=== PATIENT | female | born 1985 | race Caucasian/White ===

== ENCOUNTER 2020-08-01 09:45 | Emergency (ER) | payer OTHER ==
[~2020-08-01] VITALS: Ht 152.4 cm; Wt 75.8 kg
[2020-08-01 09:46] VITALS: BP 112/74
[2020-08-01] MEDS ORDERED: LOVE1INJ SC (09:57)
[2020-08-01] MEDS ORDERED: METH5TA PO (09:57)
== END 2020-08-01 10:15 | disposition home or self-care (01) ==
LOC: M ED 09:45
DX: Z48.02 Encounter for removal of sutures (principal); Z88.1 Allergy status to other antibiotic agents; F11.20 Opioid dependence, uncomplicated; Z79.899 Other long term (current) drug therapy

== ENCOUNTER → 2021-01-11 | Outpatient (REF) | payer MEDICAID ==
[~2021-01-11] MED LIST: LOVE1INJ SC; METH5TA PO
[2021-01-11 14:52] LABS: BLOOD UREA NITROGEN 8 MG/DL (7-18); CALCIUM LEVEL 8.8 MG/DL (8.5-10.1); CARBON DIOXIDE LEVEL 30 MEQ/L (21-32); CHLORIDE LEVEL 105 MEQ/L (98-107); CREATININE FOR GFR 0.74 MG/DL (0.55-1.30); FREE T4 0.68 NG/DL (0.76-1.46); GLOMERULAR FILTRATION RATE > 60.0 (>60); GLUCOSE, FASTING 118 MG/DL (70-100); POTASSIUM SERUM 4.3 MEQ/L (3.5-5.1); SODIUM LEVEL 138 MEQ/L (136-145)
== END ==
LOC: M SFHCPLAZ 09:49
PROVIDERS: ATTEND Family Medicine
DX: E03.9 Hypothyroidism, unspecified (principal); R60.9 Edema, unspecified

== ENCOUNTER 2021-02-11 11:34 | Emergency (ER) | payer MEDICAID, OTHER ==
[~2021-02-11] VITALS: Ht 152.4 cm; Wt 77.3 kg
[2021-02-11] MEDS ORDERED: XANA1TAB2 PO (11:42)
[2021-02-11] MEDS ORDERED: methocarbamoL 750 MG TAB PO ONE (12:25)
[2021-02-11] MEDS ORDERED: KETOROLAC 60MG 2ML VIAL IM ONE (12:25)
[2021-02-11 12:49] LABS: HEMATOCRIT 44.3 % (36.0-47.0); MEAN CORPUSCULAR HEMOGLOBIN 28.2 pg (27.0-33.0); MEAN CORPUSCULAR HGB CONC 31.6 g/dl (32.0-36.5); MEAN CORPUSCULAR VOLUME 89.1 fl (80.0-96.0); PLATELET COUNT, AUTOMATED 228 10^3/uL (150-450); RED BLOOD COUNT 4.97 10^6/uL (4.00-5.40); WHITE BLOOD COUNT 7.7 10^3/uL (4.0-10.0)
--- NOTE | 2021-02-11 13:05 | REP ---
INDICATION: left pleuritic upper back pain; r/o pneumonia COMPARISON: None. TECHNIQUE: PA and lateral. FINDINGS: The mediastinum and cardiac silhouette are normal. Vague increased perihilar and primarily left infrahilar markings are nonspecific although viral pneumonia cannot be excluded. No discrete focal consolidation, effusion, or pneumothorax. Skeletal structures intact. IMPRESSION: Subtle increased markings are nonspecific and raise the possibility of viral pneumonia. No focal consolidation or effusion. Correlation recommended. <Electronically signed by Dejon Rascon > 02/11/21 [id number]
[2021-02-11 13:07] LABS: BLOOD UREA NITROGEN 9 MG/DL (7-18); CALCIUM LEVEL 9.2 MG/DL (8.5-10.1); CARBON DIOXIDE LEVEL 30 MEQ/L (21-32); CHLORIDE LEVEL 104 MEQ/L (98-107); CREATININE FOR GFR 0.86 MG/DL (0.55-1.30); GLOMERULAR FILTRATION RATE > 60.0 (>60); GLUCOSE, FASTING 66 MG/DL (70-100); POTASSIUM SERUM 4.6 MEQ/L (3.5-5.1); SODIUM LEVEL 136 MEQ/L (136-145)
[2021-02-11 13:24] LABS: ATYPICAL LYMPH 2 % (0-5); EOSINOPHILS 5 % (0-3); LYMPHOCYTES 28 % (16-44); MONOCYTES 5 % (0-5); NEUTROPHILS 57 % (28-66); PLATELET ESTIMATE NORMAL (NORMAL)
[2021-02-11] MEDS ORDERED: KETO10TAB PO (13:39)
[2021-02-11] MEDS ORDERED: METH-1165 PO (13:39)
[2021-02-11 13:57] VITALS: BP 120/77
== END 2021-02-11 13:58 | disposition home or self-care (01) ==
LOC: M ED 11:34
DX: M62.830 Muscle spasm of back (principal); Z86.718 Personal history of other venous thrombosis and embolism; F17.200 Nicotine dependence, unspecified, uncomplicated; Z88.1 Allergy status to other antibiotic agents; Z79.899 Other long term (current) drug therapy
CPT/HCPCS: 71046; 80048; 85025; 85379; 96372; 99283; J1885

== ENCOUNTER 2021-03-20 11:58 | Emergency (ER) | payer MEDICAID, OTHER ==
[~2021-03-20] VITALS: Ht 152.4 cm; Wt 79.3 kg
[2021-03-20 11:58] VITALS: BP 137/81
[~2021-03-20 11:58] MED LIST changes: +KETO10TAB PO; +METH-1165 PO; +XANA1TAB2 PO
[2021-03-20] MEDS ORDERED: FAMO1TAB11 (12:14)
[2021-03-20] MEDS ORDERED: LEVO50TA5 (12:14)
[2021-03-20] MEDS ORDERED: KETOROLAC 30 MG/ML 1ML VIAL IV ONE (12:30)
[2021-03-20 12:41] LABS: HEMATOCRIT 43.4 % (36.0-47.0); HEMOGLOBIN 13.7 g/dl (12.0-15.5); MEAN CORPUSCULAR HEMOGLOBIN 28.8 pg (27.0-33.0); MEAN CORPUSCULAR HGB CONC 31.6 g/dl (32.0-36.5); MEAN CORPUSCULAR VOLUME 91.2 fl (80.0-96.0); PLATELET COUNT, AUTOMATED 216 10^3/uL (150-450); RED BLOOD COUNT 4.76 10^6/uL (4.00-5.40); WHITE BLOOD COUNT 7.1 10^3/uL (4.0-10.0)
[2021-03-20 12:45] LABS: INR 0.95; PARTIAL THROMBOPLASTIN TIME 27.8 SECONDS (24.2-38.5); PROTHROMBIN TIME 12.9 SECONDS (12.5-14.3)
[2021-03-20 12:57] LABS: ALBUMIN 3.6 GM/DL (3.2-5.2); ALT/SGPT 26 U/L (12-78); BILIRUBIN,DIRECT < 0.1 MG/DL (0.0-0.2); BILIRUBIN,TOTAL 0.3 MG/DL (0.2-1.0); BLOOD UREA NITROGEN 10 MG/DL (7-18); C REACTIVE PROTEIN QUANTITATIV 0.83 MG/DL (0.00-0.30); CALCIUM LEVEL 9.3 MG/DL (8.5-10.1); CARBON DIOXIDE LEVEL 30 MEQ/L (21-32); CHLORIDE LEVEL 104 MEQ/L (98-107); CK-MB VALUE MASS 2.2 NG/ML (<3.6); CPK CREATINE PHOSPHOKINASE 182 U/L (26-192); CREATININE FOR GFR 0.79 MG/DL (0.55-1.30); FREE T4 0.77 NG/DL (0.76-1.46); GLOMERULAR FILTRATION RATE > 60.0 (>60); GLUCOSE, FASTING 61 MG/DL (70-100); LIPASE 106 U/L (73-393); MB/CK RELATIVE INDEX 1.21 (< OR =4); POTASSIUM SERUM 4.2 MEQ/L (3.5-5.1); SODIUM LEVEL 138 MEQ/L (136-145); TOTAL PROTEIN 7.2 GM/DL (6.4-8.2); TROPONIN I < 0.02 NG/ML (< 0.10)
[2021-03-20] MEDS ORDERED: ISOVUE-370 76% 100ML VIAL As Ordered ONE (12:59)
[2021-03-20 13:03] LABS: EOSINOPHILS 5 % (0-3); LYMPHOCYTES 46 % (16-44); MONOCYTES 4 % (0-5); NEUTROPHILS 45 % (28-66)
[2021-03-20 13:04] LABS: PLATELET ESTIMATE NORMAL (NORMAL)
--- NOTE | 2021-03-20 13:27 | REP ---
INDICATION: R/O PE, left sided chest pain, h/o previous pe, not anticoag COMPARISON: None. TECHNIQUE: Axial contrast enhanced images from the thoracic inlet to the upper abdomen using pulmonary embolus technique with multiplanar re-formations. 75 ml Isovue 370 intravenous contrast material administered without complication. This CT examination was performed using the following dose reduction techniques: Automated exposure control, adjustment of mA and/or kv according to the patient's size, and use of iterative reconstruction technique. FINDINGS: Satisfactory enhancement of the pulmonary vasculature is achieved and no filling defects are identified to suggest pulmonary embolus. Further evaluation of the mediastinum demonstrates normal thoracic aorta, heart and pericardium. The lung burris demonstrate very subtle small patchy areas of ground-glass opacity (right greater than left) raising the possibility of early acute pneumonia/bronchitis. No discrete focal consolidation, effusion, or pneumothorax. Tracheobronchial tree is patent. Mild reactive mediastinal and right hilar lymph nodes are also identified. Musculoskeletal structures are intact. Limited upper abdomen grossly unremarkable. IMPRESSION: 1. No evidence for pulmonary embolus. 2. Very subtle patchy ground-glass opacities raise the possibility of early acute pneumonia/bronchitis. <Electronically signed by Dejon Rascon > 03/20/21 [id number]
--- NOTE | 2021-03-20 13:27 | REP ---
INDICATION: CHEST PAIN COMPARISON: 02/11/2021 TECHNIQUE: Portable AP view of the chest FINDINGS: The mediastinum and cardiac silhouette are stable and within normal limits for portable technique. The lung burris are clear without acute consolidation, effusion, or pneumothorax. Skeletal structures are intact. IMPRESSION: No acute cardiopulmonary process appreciated. <Electronically signed by Dejon Rascon > 03/20/21 [id number]
[2021-03-20 14:09] LABS: ERYTHROCYTE SEDIMENTATION RATE 20 mm/hr (0-20)
[2021-03-20] MEDS ORDERED: PERCOCET 5MG/325MG TAB PO ONE (14:20)
[2021-03-20 15:38] LABS: CK-MB VALUE MASS 1.5 NG/ML (<3.6); CPK CREATINE PHOSPHOKINASE 184 U/L (26-192); MB/CK RELATIVE INDEX 0.82 (< OR =4); TROPONIN I < 0.02 NG/ML (< 0.10)
[2021-03-20] MEDS ORDERED: KETO10TAB PO (16:01)
--- NOTE | 2021-03-21 08:18 | ED PDOC ---
Post-Departure Follow-Up radiology repor tfaxed to lamont Antonio Sarah MD March 21, 2021 08:18
--- NOTE | 2021-03-21 09:24 | ECGEPIP ---
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
--- NOTE | 2021-03-21 09:27 | ECGEPIP ---
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
== END 2021-03-20 16:50 | disposition home or self-care (01) ==
LOC: M ED 11:58
DX: R07.89 Other chest pain (principal); R00.1 Bradycardia, unspecified; R91.8 Other nonspecific abnormal finding of lung field; E03.9 Hypothyroidism, unspecified; F17.200 Nicotine dependence, unspecified, uncomplicated; Z88.1 Allergy status to other antibiotic agents; Z79.899 Other long term (current) drug therapy
CPT/HCPCS: 71045; 71275; 80047; 80048; 80076; 82550; 82553; 83690; 84439; 84443; 84702; 85025; 85610; 85652; 85730; 86140; 93005; 93041; 94760; 96374; 99284; J1885; Q9967

== ENCOUNTER → 2021-04-12 | Outpatient (REF) | payer OTHER, MEDICAID ==
[~2021-04-12] MED LIST changes: +FAMO1TAB11; +LEVO50TA5
== END ==
LOC: M SFHCWAGY 13:15
PROVIDERS: ATTEND Obstetrics & Gynecology
DX: Z12.4 Encounter for screening for malignant neoplasm of cervix (principal); Z01.419 Encounter for gynecological examination (general) (routine) without abnormal findings

== ENCOUNTER → 2021-04-15 | Outpatient (REF) | payer OTHER, MEDICAID ==
[2021-04-15 13:38] LABS: HEMATOCRIT 43.4 % (36.0-47.0); HEMOGLOBIN 13.7 g/dl (12.0-15.5); MEAN CORPUSCULAR HEMOGLOBIN 28.5 pg (27.0-33.0); MEAN CORPUSCULAR HGB CONC 31.6 g/dl (32.0-36.5); MEAN CORPUSCULAR VOLUME 90.4 fl (80.0-96.0); PLATELET COUNT, AUTOMATED 191 10^3/uL (150-450); WHITE BLOOD COUNT 6.3 10^3/uL (4.0-10.0)
[2021-04-15 13:57] LABS: HEMOGLOBIN A1c 5.4 %
[2021-04-15 14:18] LABS: ALBUMIN 3.6 GM/DL (3.2-5.2); ALT/SGPT 23 U/L (12-78); BILIRUBIN,TOTAL 0.3 MG/DL (0.2-1.0); BLOOD UREA NITROGEN 7 MG/DL (7-18); CALCIUM LEVEL 8.9 MG/DL (8.5-10.1); CARBON DIOXIDE LEVEL 26 MEQ/L (21-32); CHLORIDE LEVEL 106 MEQ/L (98-107); CREATININE FOR GFR 0.82 MG/DL (0.55-1.30); GLOMERULAR FILTRATION RATE > 60.0 (>60); GLUCOSE, FASTING 89 MG/DL (70-100); MAGNESIUM LEVEL 2.3 MG/DL (1.8-2.4); POTASSIUM SERUM 4.1 MEQ/L (3.5-5.1); SODIUM LEVEL 138 MEQ/L (136-145); TOTAL PROTEIN 7.3 GM/DL (6.4-8.2)
== END ==
LOC: M SFHCPLAZ 10:30
PROVIDERS: ATTEND Family Medicine
DX: R73.01 Impaired fasting glucose (principal); E03.9 Hypothyroidism, unspecified; R42 Dizziness and giddiness

== ENCOUNTER → 2021-05-06 | Outpatient (CLI) | payer OTHER ==
--- NOTE | 2021-05-06 15:25 | REP ---
INDICATION: N92.0 EXCESSIVE AND FREQUENT MENSTRUATION W/REGULAR CYCLE. COMPARISON: None. TECHNIQUE: Transvesical and transvaginal imaging FINDINGS: The uterus measures 8.4 x 4.5 x 5.2 cm. There are no masses. The endometrial echo complex is heterogenous measuring 9 mm in its greatest thickness. The right ovary measures 2.1 x 1.6 x 2.3 cm and is within normal limits with an RI 0.47. Left ovary was not visualized. There is no free fluid in cul-de-sac. Urinary bladder measures 11 x 6 x 8 cm. IMPRESSION: Heterogenous but not abnormally thickened endometrial echo complex as described above. The left ovary is not visualized. <Electronically signed by Ced Roper > 05/06/21 [id number]
== END ==
LOC: M WHC 14:13
PROVIDERS: ATTEND Obstetrics & Gynecology
DX: N92.0 Excessive and frequent menstruation with regular cycle (principal)

== ENCOUNTER → 2021-06-15 | Outpatient (CLI) | payer OTHER ==
--- NOTE | 2021-06-15 15:22 | REP ---
INDICATION: LEG LEG PAIN. COMPARISON: None. TECHNIQUE: AP and lateral views FINDINGS: No acute fracture or destructive osseous lesion. IMPRESSION: Within normal limits <Electronically signed by Ced Roper > 06/15/21 [id number]
--- NOTE | 2021-06-15 15:23 | REP ---
INDICATION: ATRAUMATIC LEG ANKLE PAIN. COMPARISON: None. TECHNIQUE: AP and lateral views FINDINGS: No acute fracture or destructive osseous lesion is identified on this limited two view exam. Tiny plantar and retrocalcaneal heel spurs are identified.. The mortise is intact. IMPRESSION: Negative limited two view exam with chronic changes as described above. Sign rib <Electronically signed by Ced Roper > 06/15/21 [id number]
--- NOTE | 2021-06-15 15:23 | REP ---
INDICATION: LEFT ANKLE PAIN COMPARISON: None. TECHNIQUE: AP and lateral views of the left knee. FINDINGS: No evidence for acute fracture or dislocation. No effusion or significant soft tissue swelling. Osseous structures and joint spaces appear intact and essentially age-appropriate. IMPRESSION: Essentially age-appropriate normal left knee examination. <Electronically signed by Dejon Rascon > 06/15/21 [id number]
== END ==
LOC: M PLAIMG 14:41
PROVIDERS: ATTEND Family Medicine
DX: E03.9 Hypothyroidism, unspecified (principal)

== ENCOUNTER → 2021-06-30 | Outpatient (CLI) | payer OTHER, MEDICAID ==
[~2021-06-30] MED LIST changes: +LEVO75TA4
== END ==
LOC: M LABSMTC 09:24
PROVIDERS: ATTEND Anesthesiology
DX: Z01.818 Encounter for other preprocedural examination (principal); Z11.52 Encounter for screening for COVID-19

== ENCOUNTER → 2021-06-30 | Outpatient (CLI) | payer OTHER ==
[2021-06-30 13:04] LABS: BASO % 0.2 % (0.0-1.0); EOS # 0.2 10^3/uL (0.0-0.5); HEMOGLOBIN 13.6 g/dl (12.0-15.5); LYMPH # 2.9 10^3/uL (1.5-5.0); MEAN CORPUSCULAR HEMOGLOBIN 28.5 pg (27.0-33.0); MEAN CORPUSCULAR HGB CONC 32.4 g/dl (32.0-36.5); MEAN CORPUSCULAR VOLUME 88.1 fl (80.0-96.0); MONO # 0.5 10^3/uL (0.0-0.8); MONO % 5.6 % (2.0-8.0); NEUTROPHILS # 5.2 10^3/uL (1.5-8.5); NEUTROPHILS % 58.9 % (36.0-66.0); PLATELET COUNT, AUTOMATED 213 10^3/uL (150-450); RED BLOOD COUNT 4.77 10^6/uL (4.00-5.40); WHITE BLOOD COUNT 8.8 10^3/uL (4.0-10.0)
[2021-06-30 13:17] LABS: INR 0.98; PROTHROMBIN TIME 13.4 SECONDS (12.7-14.5)
[2021-06-30 13:18] LABS: PARTIAL THROMBOPLASTIN TIME 29.1 SECONDS (25.9-37.0)
[2021-06-30 13:59] LABS: ALBUMIN 3.5 GM/DL (3.2-5.2); ALT/SGPT 41 U/L (12-78); BILIRUBIN,TOTAL 0.3 MG/DL (0.2-1.0); BLOOD UREA NITROGEN 5 MG/DL (7-18); CALCIUM LEVEL 8.9 MG/DL (8.5-10.1); CARBON DIOXIDE LEVEL 27 MEQ/L (21-32); CHLORIDE LEVEL 106 MEQ/L (98-107); FERRITIN 19 NG/ML (8-252); FREE T4 0.97 NG/DL (0.76-1.46); GLOMERULAR FILTRATION RATE > 60.0 (>60); GLUCOSE, FASTING 64 MG/DL (70-100); NT-PRO BNP 71 PG/ML (<125); POTASSIUM SERUM 4.1 MEQ/L (3.5-5.1); SODIUM LEVEL 138 MEQ/L (136-145); TOTAL PROTEIN 7.1 GM/DL (6.4-8.2)
[2021-06-30 14:41] LABS: HEMOGLOBIN A1c 5.4 %
== END ==
LOC: M PLALAB 11:40
PROVIDERS: ATTEND Family Medicine
DX: E03.9 Hypothyroidism, unspecified (principal)

== ENCOUNTER 2021-07-05 06:33 | Day surgery (SDC) | payer OTHER ==
[~2021-07-05] VITALS: Ht 152.4 cm; Wt 76.4 kg
[~2021-07-05 06:33] MED LIST changes: +LR 1,000 ML IV ONE
[2021-07-05 07:08] LABS: HEMATOCRIT 42.1 % (36.0-47.0); HEMOGLOBIN 13.5 g/dl (12.0-15.5); MEAN CORPUSCULAR HGB CONC 32.1 g/dl (32.0-36.5); MEAN CORPUSCULAR VOLUME 90.3 fl (80.0-96.0); PLATELET COUNT, AUTOMATED 201 10^3/uL (150-450); RED BLOOD COUNT 4.66 10^6/uL (4.00-5.40); WHITE BLOOD COUNT 7.1 10^3/uL (4.0-10.0)
[2021-07-05] MEDS ORDERED: LIDOCAINE W/EPINEPHRINE 1% 20ML VIAL As Ordered ONE (07:10)
[2021-07-05] MEDS ORDERED: METHYLENE BLUE 0.5% (5MG/ML) 10 ML AMP (PROVAYBLUE) As Ordered ONE (07:10)
[2021-07-05] MEDS ORDERED: KETOROLAC 60MG 2ML VIAL As Ordered ONE (09:10)
[2021-07-05] MEDS ORDERED: ONDANSETRON 4MG/2ML VIAL As Ordered ONE (09:10)
[2021-07-05] MEDS ORDERED: dexameTHASONE 4 MG/ML 1ML VIAL (J1100 PER 1MG) As Ordered ONE (09:10)
[2021-07-05] MEDS ORDERED: fentaNYL 100 MCG/2 ML INJECTION (J3010) As Ordered ONE (09:10)
[2021-07-05] MEDS ORDERED: propofoL 200 MG/20 ML VIAL As Ordered ONE (09:10)
[2021-07-05] MEDS ORDERED: MIDAZOLAM INJ 2MG/2ML VIAL (J2250 PER 1MG) As Ordered ONE (09:10)
[2021-07-05] MEDS ORDERED: LIDOCAINE 2% 100MG/5ML SDV (FOR ANES.) As Ordered ONE (09:10)
[2021-07-05] MEDS ORDERED: ePHEDrine SULFATE 25 MG/5 ML(5MG/ML) SYRINGE As Ordered ONE (09:16)
[2021-07-05] MEDS ORDERED: ACETAMINOPHEN 1000MG 100ML IV BTL (OFIRMEV) (J0131 PER 10MG) As Ordered ONE (09:18)
[2021-07-05] MEDS ORDERED: ONDANSETRON 4MG/2ML VIAL IV PRN (10:15)
[2021-07-05] MEDS ORDERED: LR 1,000 ML IV SCH (10:15)
[2021-07-05] MEDS ORDERED: fentaNYL 100 MCG/2 ML INJECTION (J3010) IV PRN (10:15)
[2021-07-05] MEDS ORDERED: IBUPROFEN 600MG TAB PO PRN (10:15)
[2021-07-05 14:30] VITALS: BP 112/68
[2021-07-05] MEDS ORDERED: KETOROLAC 30 MG/ML 1ML VIAL IV SCH (16:00)
--- NOTE | 2021-07-05 16:19 | ROOPDOC ---
[facility] Report Of Operation Report of Operation DATE OF PROCEDURE: 07/05/21 PREOPERATIVE DIAGNOSES: 1. Abnormal Uterine Bleeding. 2. Urinary incontinence with stress urinary incontinence component. POSTOPERATIVE DIAGNOSES: 1. Abnormal Uterine Bleeding. 2. Urinary incontinence with stress urinary incontinence component. PROCEDURE PERFORMED: 1. Hysteroscopy, dilation and curettage with endometrial ablation using NovaSure. 2. Transvaginal tape 3. Cystoscopy. SURGEON: Nasrin De La Vega MD OVERHEAD FOREMAN: Kamran Cadet MD ANESTHESIA: General tracheal anesthesia. SPECIMENS: Endometrial curetting. INTRAVENOUS FLUIDS: 1100 mL of lactated Ringer solution. ESTIMATED BLOOD LOSS: 25 mL. URINE OUTPUT: 25 mL. INFECTION CLASSIFICATION: 2. OPERATIVE FINDINGS: The patient cavity was obtained to be, 6.53.6cm. Hysteroscopic findings revealed normal endometrial cavity, bilateral ostia was visualized.Post ablation hysteroscopic findings showed desiccation of the endometrium. DESCRIPTION OF OPERATION: After informed consent was obtained and written consent was reviewed, the patient was brought to the operating room where she was placed under general endotracheal anesthesia. She was then placed in lithotomy position and was prepped and draped in a normal sterile fashion. A time out in the operating room was then performed identifying the patient, procedure to be performed as well as drug allergies. A bivalve speculum was placed revealing the cervix. The anterior lip of the cervix was grasped with single-tooth tenaculum. Uterine length was then obtained using uterine sound. The uterus was then sequentially dilated using Hanks dilators. Hysteroscope was then advanced through the endometrium. Revealing bilateral ostia with normal endometrial cavity. Otherwise unremarkable endometrial cavity. Hysteroscope was removed. The NovaSure device was then advanced. The uterine width was obtained to be 3.6 cm, both the length and width was entered into the device. Cavity assessment was then performed. Endometrial ablation was then performed. The NovaSure device was then removed. The mesh was inspected and noted to be intact. Hysteroscope was then advanced through the cervical os and the endometrial cavity was once again inspected showing desiccation of endometrium. NovaSure device was then removed. Single-tooth tenaculum was removed. Tenaculum sites were noted be hemostatic. Speculum was then removed. Next, a transvaginal tape obturator approach was performed. The bladder was previously emptied. Appropriate areas in the groin and midline were marked and injected with 0.25% Marcaine. Allis clamps were used to grasp the vaginal mucosa approximately 1 cm distal to the urethral meatus a second clamp was placed 1 cm distal to the first. A vertical incision was made with a scalpel. Using Metzenbaum scissors, this was further dissected sharply in periurethral space bilaterally. TVTO device was then groin incision, passed out to the obturator foramen and exited through the incision in the vagina. The trocar was then removed. In similar fashion was performed on the opposite side. The TVT was then adjusted over a Sumaya clamp. Sleeves were then removed. Excessive mesh was trimmed. The vaginal tissue was then irrigated and was closed with #2-0 Vicryl in a running fashion. Cystoscopy was then placed transurethrally inspecting the bladder showing normal bladder mucosa with bilateral urinary jets. The patient was then taken out lithotomy position, was awakened from general anesthesia and taken to recovery in stable condition. Counts were correct. Dr. Cadet, my salesperson surgical appliances, played an essential role during surgery. He assisted with all aspects of the placement of the transvaginal tape. NASRIN DE LA VEGA MD. Jul 05, 2021 16:19
== END 2021-07-05 14:50 | disposition home or self-care (01) ==
LOC: M SDC 06:33
PROVIDERS: ATTEND Obstetrics & Gynecology
DX: N93.9 Abnormal uterine and vaginal bleeding, unspecified (principal); N39.42 Incontinence without sensory awareness; Z88.1 Allergy status to other antibiotic agents
CPT/HCPCS: 36415; 57288; 58563; 85027; 86850; 86900; 86901; 88305; C1771; J0131; J1100; J1885; J2250; J2405; J3010

== ENCOUNTER → 2022-02-17 | Outpatient (CLI) | payer OTHER ==
[~2022-02-17] MED LIST changes: -LR 1,000 ML IV ONE
[2022-02-17 13:04] LABS: HEMATOCRIT 41.7 % (36.0-47.0); HEMOGLOBIN 13.4 g/dl (12.0-15.5); MEAN CORPUSCULAR HEMOGLOBIN 29.5 pg (27.0-33.0); MEAN CORPUSCULAR HGB CONC 32.1 g/dl (32.0-36.5); MEAN CORPUSCULAR VOLUME 91.6 fl (80.0-96.0); PLATELET COUNT, AUTOMATED 190 10^3/uL (150-450); RED BLOOD COUNT 4.55 10^6/uL (4.00-5.40); WHITE BLOOD COUNT 6.4 10^3/uL (4.0-10.0)
[2022-02-17 13:29] LABS: HCG, SERUM QUALITATIVE NEGATIVE (NEGATIVE)
[2022-02-17 15:03] LABS: GC DNA AMPLIFICATION NEGATIVE (NEGATIVE)
[2022-02-17 15:23] LABS: HEPATITIS B SURFACE ANTIGEN NEGATIVE (NEGATIVE); HEPATITIS C VIRUS ABY INDEX 0.1 INDEX (<0.8); HIV 1&2 SCREEN CENTAUR NEGATIVE (NEGATIVE)
== END ==
LOC: M PLALAB 09:14
PROVIDERS: ATTEND Family Medicine
DX: F11.21 Opioid dependence, in remission (principal)

== ENCOUNTER → 2022-02-17 | Outpatient (CLI) | payer OTHER ==
[2022-02-17 13:04] LABS: BASO % 0.3 % (0.0-1.0); EOS # 0.2 10^3/uL (0.0-0.5); EOS % 2.5 % (0.0-3.0); HEMOGLOBIN 13.5 g/dl (12.0-15.5); LYMPH # 2.2 10^3/uL (1.5-5.0); LYMPH % 33.9 % (24.0-44.0); MEAN CORPUSCULAR HEMOGLOBIN 29.9 pg (27.0-33.0); MEAN CORPUSCULAR HGB CONC 32.1 g/dl (32.0-36.5); MEAN CORPUSCULAR VOLUME 92.9 fl (80.0-96.0); MONO # 0.4 10^3/uL (0.0-0.8); NEUTROPHILS # 3.7 10^3/uL (1.5-8.5); NEUTROPHILS % 57.1 % (36.0-66.0); PLATELET COUNT, AUTOMATED 194 10^3/uL (150-450); RED BLOOD COUNT 4.52 10^6/uL (4.00-5.40); WHITE BLOOD COUNT 6.5 10^3/uL (4.0-10.0)
[2022-02-17 13:41] LABS: ERYTHROCYTE SEDIMENTATION RATE 11 mm/hr (0-20)
[2022-02-17 13:43] LABS: ALBUMIN 3.6 GM/DL (3.2-5.2); ALT/SGPT 28 U/L (12-78); BILIRUBIN,TOTAL 0.5 MG/DL (0.2-1.0); BLOOD UREA NITROGEN 8 MG/DL (7-18); C REACTIVE PROTEIN QUANTITATIV 0.46 MG/DL (0.00-0.30); CALCIUM LEVEL 8.8 MG/DL (8.5-10.1); CARBON DIOXIDE LEVEL 28 MEQ/L (21-32); CHLORIDE LEVEL 106 MEQ/L (98-107); CREATININE FOR GFR 0.88 MG/DL (0.55-1.30); GLOMERULAR FILTRATION RATE > 60.0 (>60); GLUCOSE, FASTING 63 MG/DL (70-100); POTASSIUM SERUM 4.5 MEQ/L (3.5-5.1); RHEUMATOID FACTOR QUANT < 10.0 IU/ML (<15.0); SODIUM LEVEL 138 MEQ/L (136-145); URIC ACID 2.8 MG/DL (2.6-6.0)
[2022-02-21 00:07] LABS: ANA (HEP2) Negative (.); CYCLIC CITRULLINATED PEPTIDE 5 units (0-19)
== END ==
LOC: M PLAIMG 09:07
PROVIDERS: ATTEND Family Medicine
DX: G43.119 Migraine with aura, intractable, without status migrainosus (principal); H53.2 Diplopia; M25.561 Pain in right knee; M25.551 Pain in right hip

== ENCOUNTER → 2022-03-21 | Outpatient (REF) | payer OTHER, MEDICAID | LOC: M SFHCPLAZ 12:40 | PROVIDERS: ATTEND Physician Assistant | DX: R30.0 Dysuria (principal) ==

== ENCOUNTER → 2023-02-05 | Outpatient (CLI) | payer OTHER ==
[2023-02-05 14:19] LABS: HEMATOCRIT 44.1 % (36.0-47.0); HEMOGLOBIN 14.6 g/dl (12.0-15.5); MEAN CORPUSCULAR HEMOGLOBIN 29.7 pg (27.0-33.0); MEAN CORPUSCULAR HGB CONC 33.1 g/dl (32.0-36.5); MEAN CORPUSCULAR VOLUME 89.6 fl (80.0-96.0); PLATELET COUNT, AUTOMATED 173 10^3/uL (150-450); RED BLOOD COUNT 4.92 10^6/uL (4.00-5.40); WHITE BLOOD COUNT 6.6 10^3/uL (4.0-10.0)
[2023-02-05 14:27] LABS: ALBUMIN 3.7 G/DL (3.2-5.2); ALKALINE PHOSPHATASE 51 U/L (46-116); ALT/SGPT 19 U/L (7.0-40); AST/SGOT 25 U/L (<34); BILIRUBIN,TOTAL 0.2 MG/DL (0.3-1.2); BLOOD UREA NITROGEN 16 MG/DL (9-23); CALCIUM LEVEL 8.6 MG/DL (8.5-10.1); CARBON DIOXIDE LEVEL 28 MMOL/L (20-31); CHLORIDE LEVEL 103 MMOL/L (98-107); CREATININE FOR GFR 0.82 MG/DL (0.55-1.30); GLOMERULAR FILTRATION RATE > 60.0 (>58); GLUCOSE, FASTING 98 MG/DL (60-100); POTASSIUM SERUM 4.4 MMOL/L (3.5-5.1); SODIUM LEVEL 136 MMOL/L (136-145); TOTAL PROTEIN 7.1 G/DL (5.7-8.2)
[2023-02-05 14:29] LABS: THYROXINE (T4) 9.2 UG/DL (4.5-10.9)
[2023-02-05 14:30] LABS: THYROID STIMULATING HORMONE 3.888 uIU/ML (0.55-4.78)
[2023-02-05 14:36] LABS: HCG, SERUM QUALITATIVE NEGATIVE (NEGATIVE)
[2023-02-05 14:47] LABS: HEPATITIS B SURFACE ANTIGEN NEGATIVE (NEGATIVE)
[2023-02-05 15:00] LABS: HIV 1&2 SCREEN ATELLICA NEGATIVE (NEGATIVE)
[2023-02-05 15:59] LABS: GC DNA AMPLIFICATION NEGATIVE (NEGATIVE)
== END ==
LOC: M PLALAB 10:57
PROVIDERS: ATTEND Family Medicine
DX: F11.20 Opioid dependence, uncomplicated (principal)

== ENCOUNTER 2023-12-01 15:14 | Emergency (ER) | payer MEDICAID, OTHER ==
[~2023-12-01] VITALS: Ht 152.4 cm; Wt 62.7 kg
[2023-12-01] MEDS ORDERED: ASPIRIN 81MG CHEW TABLET PO ONE (15:35)
[2023-12-01] MEDS: NS 500 ML IV ONE (15:35)
[2023-12-01 15:51] LABS: BASO % 0.3 % (0.0-1.0); EOS # 0.1 10^3/uL (0.0-0.5); EOS % 1.4 % (0.0-3.0); HEMATOCRIT 39.2 % (36.0-47.0); HEMOGLOBIN 13.2 g/dl (12.0-15.5); LYMPH # 1.5 10^3/uL (1.5-5.0); LYMPH % 22.9 % (24.0-44.0); MEAN CORPUSCULAR HEMOGLOBIN 30.6 pg (27.0-33.0); MEAN CORPUSCULAR HGB CONC 33.7 g/dl (32.0-36.5); MEAN CORPUSCULAR VOLUME 90.7 fl (80.0-96.0); MONO # 0.5 10^3/uL (0.0-0.8); MONO % 7.4 % (2.0-8.0); NEUTROPHILS # 4.3 10^3/uL (1.5-8.5); NEUTROPHILS % 67.8 % (36.0-66.0); PLATELET COUNT, AUTOMATED 154 10^3/uL (150-450); RED BLOOD COUNT 4.32 10^6/uL (4.00-5.40); WHITE BLOOD COUNT 6.3 10^3/uL (4.0-10.0)
[2023-12-01 16:03] LABS: PROTHROMBIN TIME 12.9 SECONDS (12.5-14.5)
[2023-12-01 16:04] LABS: PARTIAL THROMBOPLASTIN TIME 26.4 SECONDS (24.8-34.2)
[2023-12-01 16:14] LABS: CK-MB VALUE MASS < 1.0 NG/ML (<3.6); LIPASE 22 U/L (12-53)
[2023-12-01 16:16] LABS: ALBUMIN 3.5 G/DL (3.2-5.2); ALKALINE PHOSPHATASE 46 U/L (46-116); ALT/SGPT 19 U/L (7.0-40); AST/SGOT 19 U/L (<34); BILIRUBIN,DIRECT < 0.1 MG/DL (<0.4); BILIRUBIN,TOTAL 0.2 MG/DL (0.3-1.2); BLOOD UREA NITROGEN 7 MG/DL (9-23); CALCIUM LEVEL 8.2 MG/DL (8.5-10.1); CARBON DIOXIDE LEVEL 28 MMOL/L (20-31); CHLORIDE LEVEL 107 MMOL/L (98-107); CREATININE FOR GFR 0.93 MG/DL (0.55-1.30); GLOMERULAR FILTRATION RATE > 60.0 (>58); GLUCOSE, FASTING 110 MG/DL (60-100); HCG, SERUM QUALITATIVE NEGATIVE (NEGATIVE); POTASSIUM SERUM 3.9 MMOL/L (3.5-5.1); SODIUM LEVEL 137 MMOL/L (136-145); TOTAL PROTEIN 6.3 G/DL (5.7-8.2)
[2023-12-01 16:18] LABS: THYROID STIMULATING HORMONE 2.364 uIU/ML (0.55-4.78)
[2023-12-01 16:25] LABS: CPK CREATINE PHOSPHOKINASE 124 U/L (34-145)
[2023-12-01 16:30] LABS: RSV AMPLIFICATION NEGATIVE (NEGATIVE)
[2023-12-01] MEDS ORDERED: ISOVUE-370 76% 100ML VIAL As Ordered ONE (16:51)
[2023-12-01] MEDS: KETOROLAC 30 MG/ML 1ML VIAL IV ONE (19:28)
[2023-12-01] MEDS: CYCLOBENZAPRINE 5MG TABLET PO ONE (19:28)
[2023-12-01 19:47] VITALS: BP 121/75; TEMP 97.9; O2SAT 98
[2023-12-01] MEDS ORDERED: CYCL5TAB PO (19:51)
[2023-12-01] MEDS ORDERED: KETO10TAB PO (19:51)
== END 2023-12-01 19:55 | disposition home or self-care (01) ==
LOC: EDBD 15:14 → M ED 15:14
DX: R07.9 Chest pain, unspecified (principal); J45.909 Unspecified asthma, uncomplicated; F17.210 Nicotine dependence, cigarettes, uncomplicated; Z88.8 Allergy status to other drugs, medicaments and biological substances; Z79.899 Other long term (current) drug therapy
CPT/HCPCS: 71275; 80048; 80076; 82550; 82553; 83690; 83735; 83880; 84443; 84703; 85025; 85610; 85730; 87631; 93005; 93041; 94760; 96361; 96374; 99285; J1885; Q9967

== ENCOUNTER → 2023-12-07 | Outpatient (REF) | payer OTHER, MEDICAID ==
[~2023-12-07] MED LIST changes: +CYCL5TAB PO
== END ==
LOC: M SFHCPLAZ 16:46
PROVIDERS: ATTEND Physician Assistant
DX: M54.6 Pain in thoracic spine (principal)

== ENCOUNTER 2024-04-12 23:52 | Emergency (ER) | payer MEDICAID, OTHER ==
[~2024-04-12] VITALS: Ht 152.4 cm; Wt 55.0 kg
[~2024-04-12 23:52] MED LIST changes: -FAMO1TAB11; +FAMO1TAB11 PO; -LEVO75TA4; +LEVO75TA4 PO
[2024-04-13] MEDS ORDERED: HALOPERIDOL LACTATE 5MG/ML VIAL As Ordered ONE (00:20)
[2024-04-13] MEDS: diphenhydrAMINE 50MG/ML VIAL IM ONE (00:21)
[2024-04-13] MEDS: LORazepam 2 MG/ML 1ML VIAL IM ONE (00:21)
[2024-04-13] MEDS: HALOPERIDOL LACTATE 5MG/ML VIAL IM ONE (00:21)
[2024-04-13 01:16] LABS: HEMATOCRIT 38.7 % (36.0-47.0); HEMOGLOBIN 13.4 g/dl (12.0-15.5); MEAN CORPUSCULAR HEMOGLOBIN 30.4 pg (27.0-33.0); MEAN CORPUSCULAR HGB CONC 34.6 g/dl (32.0-36.5); MEAN CORPUSCULAR VOLUME 87.8 fl (80.0-96.0); PLATELET COUNT, AUTOMATED 149 10^3/uL (150-450); RED BLOOD COUNT 4.41 10^6/uL (4.00-5.40); WHITE BLOOD COUNT 4.7 10^3/uL (4.0-10.0)
[2024-04-13 01:41] LABS: ETHYL ALCOHOL (ETHANOL) < 0.003 % (0.000-0.010)
[2024-04-13 01:42] LABS: SALICYLATE LEVEL < 3.0 MG/DL (<30)
[2024-04-13 01:43] LABS: ALBUMIN 3.8 G/DL (3.2-5.2); ALKALINE PHOSPHATASE 45 U/L (46-116); ALT/SGPT 25 U/L (7.0-40); AST/SGOT 25 U/L (<34); BILIRUBIN,DIRECT 0.1 MG/DL (<0.4); BILIRUBIN,TOTAL 0.3 MG/DL (0.3-1.2); BLOOD UREA NITROGEN 11 MG/DL (9-23); CARBON DIOXIDE LEVEL 27 MMOL/L (20-31); CHLORIDE LEVEL 106 MMOL/L (98-107); CREATININE FOR GFR 0.98 MG/DL (0.55-1.30); GLOMERULAR FILTRATION RATE > 60.0 (>58); GLUCOSE, FASTING 89 MG/DL (60-100); POTASSIUM SERUM 3.3 MMOL/L (3.5-5.1); SODIUM LEVEL 138 MMOL/L (136-145); TOTAL PROTEIN 6.4 G/DL (5.7-8.2)
[2024-04-13] MEDS ORDERED: METH-1164 PO (01:43)
[2024-04-13] MEDS ORDERED: RIZA5TAB2 PO (01:43)
[2024-04-13] MEDS ORDERED: TOPI-21 PO (01:43)
[2024-04-13] MEDS ORDERED: ADDE10TA PO (01:43)
[2024-04-13] MEDS ORDERED: AMPH1CAP14 PO (01:43)
[2024-04-13] MEDS ORDERED: METH10SO PO (01:49)
[2024-04-13] MEDS ORDERED: HOME MED LIST COMPLETE! XX SCH (01:50)
[2024-04-13] MEDS: BACITRACIN OINTMENT 30GM TUBE TOP ONE (06:30)
[2024-04-13 08:07] LABS: BARBITURATES URINE NEGATIVE (NEGATIVE); COCAINE METABOLITE URINE NEGATIVE (NEGATIVE); OPIATES URINE NEGATIVE (NEGATIVE); PHENCYCLIDINE URINE NEGATIVE (NEGATIVE)
[2024-04-13 08:09] LABS: AMPHETAMINES LEVEL URINE POSITIVE (NEGATIVE); BENZODIAZEPINES URINE POSITIVE (NEGATIVE); CANNABINOIDS URINE POSITIVE (NEGATIVE); METHADONE URINE POSITIVE (NEGATIVE)
[2024-04-13] MEDS ORDERED: TOPIRAMATE (TopAMAX) 25 MG TAB PO SCH (09:00)
[2024-04-13] MEDS: ALPRAZolam 0.5 MG TAB PO ONE (12:57)
[2024-04-13] MEDS: ADDERALL 5 MG TAB PO SCH (12:57)
[2024-04-13] MEDS: FAMOTIDINE 20 MG TAB PO PRN (12:58)
[2024-04-13] MEDS: LEVOTHYROXINE 75MCG TABLET (0.075MG) PO SCH (12:58)
[2024-04-13 13:55] VITALS: BP 112/72; TEMP 98; O2SAT 95
[2024-04-13] MEDS ORDERED: ALPRAZolam 0.5 MG TAB PO SCH (21:00)
== END 2024-04-13 14:08 | disposition home or self-care (01) ==
LOC: M ED 23:52
DX: F43.0 Acute stress reaction (principal); F19.10 Other psychoactive substance abuse, uncomplicated; Z88.1 Allergy status to other antibiotic agents; Z79.899 Other long term (current) drug therapy
CPT/HCPCS: 80048; 80076; 80143; 80307; 82077; 84443; 85027; 87635; 96372; 99285; J1200; J1630; J2060

== ENCOUNTER → 2024-05-14 | Outpatient (CLI) | payer OTHER ==
[~2024-05-14] MED LIST changes: +ADDE10TA PO; +AMPH1CAP14 PO; +METH-1164 PO; +METH10SO PO; +RIZA5TAB2 PO; +TOPI-21 PO
[2024-05-14 15:12] LABS: BASO % 0.4 % (0.0-1.0); EOS # 0.2 10^3/uL (0.0-0.5); EOS % 2.2 % (0.0-3.0); HEMATOCRIT 41.2 % (36.0-47.0); HEMOGLOBIN 13.5 g/dl (12.0-15.5); LYMPH % 29.2 % (24.0-44.0); MEAN CORPUSCULAR HEMOGLOBIN 29.9 pg (27.0-33.0); MEAN CORPUSCULAR HGB CONC 32.8 g/dl (32.0-36.5); MEAN CORPUSCULAR VOLUME 91.4 fl (80.0-96.0); MONO # 0.4 10^3/uL (0.0-0.8); MONO % 5.7 % (2.0-8.0); NEUTROPHILS # 4.2 10^3/uL (1.5-8.5); NEUTROPHILS % 62.4 % (36.0-66.0); PLATELET COUNT, AUTOMATED 167 10^3/uL (150-450); RED BLOOD COUNT 4.51 10^6/uL (4.00-5.40); WHITE BLOOD COUNT 6.7 10^3/uL (4.0-10.0)
[2024-05-14 15:44] LABS: ALBUMIN 3.7 G/DL (3.2-5.2); ALKALINE PHOSPHATASE 49 U/L (46-116); ALT/SGPT 22 U/L (7.0-40); AST/SGOT 18 U/L (<34); BILIRUBIN,TOTAL 0.3 MG/DL (0.3-1.2); BLOOD UREA NITROGEN 11 MG/DL (9-23); CALCIUM LEVEL 9.1 MG/DL (8.5-10.1); CARBON DIOXIDE LEVEL 28 MMOL/L (20-31); CHLORIDE LEVEL 108 MMOL/L (98-107); CHOLESTEROL LEVEL 140 MG/DL (<200); CHOLESTEROL RISK RATIO 2.69 (<5); CREATININE FOR GFR 0.86 MG/DL (0.55-1.30); GLOMERULAR FILTRATION RATE > 60.0 (>58); GLUCOSE, FASTING 82 MG/DL (60-100); HDL CHOLESTEROL 51.9 MG/DL (>40); LDL CHOLESTEROL 74.9 MG/DL (<100); NON-HDL-C 88.1 MG/DL; POTASSIUM SERUM 4.6 MMOL/L (3.5-5.1); SODIUM LEVEL 140 MMOL/L (136-145); THYROID STIMULATING HORMONE 3.286 uIU/ML (0.55-4.78); TOTAL PROTEIN 6.5 G/DL (5.7-8.2); TRIGLYCERIDES LEVEL 66 MG/DL (<150)
== END ==
LOC: M PLAIMG 12:50
PROVIDERS: ATTEND Physician Assistant
DX: M25.551 Pain in right hip (principal); M54.50 Low back pain, unspecified; M25.511 Pain in right shoulder

== ENCOUNTER → 2024-05-14 | Outpatient (CLI) | payer OTHER | LOC: M WHC 12:48 | PROVIDERS: ATTEND Physician Assistant | DX: R10.31 Right lower quadrant pain (principal) ==

== ENCOUNTER → 2024-09-15 | Outpatient (REF) | payer MEDICAID, OTHER ==
[~2024-09-15] MED LIST changes: -CYCL5TAB PO; +CYCL5TAB4 PO
== END ==
LOC: M SFHCPLAZ 17:09
PROVIDERS: ATTEND Physician Assistant Medical
DX: J06.9 Acute upper respiratory infection, unspecified (principal)

== ENCOUNTER 2024-10-19 12:59 | Emergency (ER) | payer MEDICAID, OTHER ==
[~2024-10-19] VITALS: Ht 152.4 cm; Wt 63.6 kg
[2024-10-19] MEDS ORDERED: ARIP10TA63 (13:17)
[2024-10-19] MEDS ORDERED: DULO1CAP6 (13:17)
[2024-10-19] MEDS ORDERED: NORCO, ANEXSIA 5/325MG TABLET (HYDROcodone/ACETAMINOPHEN) PO ONE (14:20)
[2024-10-19 14:33] LABS: BASO % 0.3 % (0.0-1.0); EOS # 0.1 10^3/uL (0.0-0.5); EOS % 1.5 % (0.0-3.0); HEMATOCRIT 40.2 % (36.0-47.0); HEMOGLOBIN 13.1 g/dl (12.0-15.5); LYMPH # 2.1 10^3/uL (1.5-5.0); LYMPH % 23.2 % (24.0-44.0); MEAN CORPUSCULAR HEMOGLOBIN 29.9 pg (27.0-33.0); MEAN CORPUSCULAR HGB CONC 32.6 g/dl (32.0-36.5); MEAN CORPUSCULAR VOLUME 91.8 fl (80.0-96.0); MONO # 0.5 10^3/uL (0.0-0.8); NEUTROPHILS # 6.3 10^3/uL (1.5-8.5); NEUTROPHILS % 69.6 % (36.0-66.0); PLATELET COUNT, AUTOMATED 175 10^3/uL (150-450); RED BLOOD COUNT 4.38 10^6/uL (4.00-5.40); WHITE BLOOD COUNT 9.1 10^3/uL (4.0-10.0)
[2024-10-19] MEDS: ACETAMINOPHEN 500 MG TAB PO ONE (14:35)
[2024-10-19 14:39] LABS: APPEARANCE, URINE HAZY (CLEAR); BACTERIA, URINE AUTO 1+ (NEGATIVE); BILIRUBIN, URINE AUTO NEGATIVE (NEGATIVE); BLOOD, URINE BLOOD 1+ (NEGATIVE); COLOR, URINE YELLOW (YELLOW); GLUCOSE, URINE (UA) AUTO NEGATIVE (NEGATIVE); KETONE, URINE AUTO NEGATIVE (NEGATIVE); LEUKOCYTE ESTERASE, URINE AUTO 1+ (NEGATIVE); MUCUS, URINE SMALL (NEGATIVE); NITRITE, URINE AUTO NEGATIVE (NEGATIVE); PROTEIN, URINE AUTO NEGATIVE (NEGATIVE); RBC, URINE AUTO 2 /HPF (0-3); SPECIFIC GRAVITY URINE AUTO 1.024 (1.002-1.035); SQUAMOUS EPITHELIAL CELL UR AU 13 /HPF (0-6); UROBILINOGEN, URINE AUTO 0.2 mg/dL (0.0-2.0); WBC, URINE AUTO 5 /HPF (0-3)
[2024-10-19 14:52] LABS: CK-MB VALUE MASS 2.3 NG/ML (<3.6); ETHYL ALCOHOL (ETHANOL) 0.005 % (0.000-0.010); LIPASE 28 U/L (12-53)
[2024-10-19 14:53] LABS: AMYLASE 53 U/L (30-118)
[2024-10-19 14:54] LABS: ALBUMIN 3.8 G/DL (3.2-5.2); ALKALINE PHOSPHATASE 50 U/L (35-104); ALT/SGPT 33 U/L (7.0-40); AST/SGOT 27 U/L (<34); BILIRUBIN,DIRECT < 0.1 MG/DL (<0.4); BILIRUBIN,TOTAL 0.2 MG/DL (0.3-1.2); BLOOD UREA NITROGEN 15 MG/DL (9-23); CALCIUM LEVEL 9.1 MG/DL (8.5-10.1); CARBON DIOXIDE LEVEL 28 MMOL/L (20-31); CHLORIDE LEVEL 107 MMOL/L (98-107); CREATININE FOR GFR 0.76 MG/DL (0.55-1.30); GLOMERULAR FILTRATION RATE > 60.0 (>58); GLUCOSE, FASTING 82 MG/DL (60-100); POTASSIUM SERUM 4.2 MMOL/L (3.5-5.1); SODIUM LEVEL 141 MMOL/L (136-145); TOTAL PROTEIN 6.7 G/DL (5.7-8.2)
[2024-10-19 14:56] LABS: CPK CREATINE PHOSPHOKINASE 165 U/L (34-145); MB/CK RELATIVE INDEX 1.39 (< OR =4)
[2024-10-19 14:57] LABS: BARBITURATES URINE NEGATIVE (NEGATIVE); COCAINE METABOLITE URINE NEGATIVE (NEGATIVE); OPIATES URINE NEGATIVE (NEGATIVE)
[2024-10-19 14:58] LABS: PHENCYCLIDINE URINE NEGATIVE (NEGATIVE)
[2024-10-19 14:59] LABS: INR 0.98; PARTIAL THROMBOPLASTIN TIME 26.1 SECONDS (24.8-34.2); PROTHROMBIN TIME 13.3 SECONDS (12.5-14.5)
[2024-10-19 14:59] LABS: AMPHETAMINES LEVEL URINE POSITIVE (NEGATIVE); BENZODIAZEPINES URINE POSITIVE (NEGATIVE); CANNABINOIDS URINE POSITIVE (NEGATIVE); METHADONE URINE POSITIVE (NEGATIVE)
[2024-10-19] MEDS: NS (Normal Saline) 0.9% 1,000 ML IV ONE (15:04)
[2024-10-19 16:27] LABS: HCG, SERUM QUALITATIVE NEGATIVE (NEGATIVE)
[2024-10-19] MEDS ORDERED: IBUP-1022 PO (17:31)
[2024-10-19] MEDS ORDERED: LIDO5DIS41 TOP (17:31)
[2024-10-19 17:45] VITALS: BP 117/83; TEMP 97.9; O2SAT 100
[2024-10-19] MEDS: IBUPROFEN 600MG TAB PO ONE (18:05)
[2024-10-19] MEDS: LIDOCAINE 5% (LIDODERM) PATCH TD ONE (18:06)
== END 2024-10-19 18:17 | disposition home or self-care (01) ==
LOC: M ED 12:59
DX: S06.0X0A Concussion without loss of consciousness, initial encounter (principal); S00.11XA Contusion of right eyelid and periocular area, initial encounter; S30.0XXA Contusion of lower back and pelvis, initial encounter; Y92.019 Unspecified place in single-family (private) house as the place of occurrence of the external cause; Y93.9 Activity, unspecified; Y99.9 Unspecified external cause status; W10.8XXA Fall (on) (from) other stairs and steps, initial encounter; F41.9 Anxiety disorder, unspecified; F19.10 Other psychoactive substance abuse, uncomplicated; Z88.1 Allergy status to other antibiotic agents; Z79.1 Long term (current) use of non-steroidal anti-inflammatories (NSAID); Z79.899 Other long term (current) drug therapy

== ENCOUNTER → 2024-12-25 | Outpatient (CLI) | payer OTHER ==
[~2024-12-25] MED LIST changes: +ARIP10TA63; +DULO1CAP6; +IBUP-1022 PO; +LIDO5DIS41 TOP
== END ==
LOC: M RAD 10:02
PROVIDERS: ATTEND Student in an Organized Health Care Education/Training Program
DX: K42.9 Umbilical hernia without obstruction or gangrene (principal)

== ENCOUNTER → 2025-05-12 | Outpatient (CLI) | payer OTHER ==
[~2025-05-12] MED LIST changes: +LIDO1ADH93 TOP; -LIDO5DIS41 TOP
== END ==
LOC: M RAD 17:54
DX: F07.81 Postconcussional syndrome (principal)

== ENCOUNTER → 2025-05-21 | Outpatient (CLI) | payer OTHER | LOC: M SOG 06:49 | PROVIDERS: ATTEND Neuromusculoskeletal Medicine, Sports Medicine | DX: M25.511 Pain in right shoulder (principal); Z53.9 Procedure and treatment not carried out, unspecified reason ==

== ENCOUNTER → 2025-09-09 | Outpatient (REF) | payer MEDICAID, OTHER ==
[~2025-09-09] MED LIST changes: -IBUP-1022 PO; +IBUP600T42 PO
== END ==
LOC: M SFHCPLAZ 22:23
PROVIDERS: ATTEND Family Medicine
DX: Z53.9 Procedure and treatment not carried out, unspecified reason (principal)